=== PATIENT | male | born 1945 | race Caucasian/White ===

== ENCOUNTER → 2020-10-13 | Outpatient (CLI) | payer MEDICARE ==
--- NOTE | 2020-10-13 19:47 | EST ---
EXERCISE STRESS AGE: 74 SEX: Male HT: 6 feet 0 inches WT: 204 pounds PROTOCOL: Naeem STAGE: 2 DURATION OF EXERCISE: 6 minutes HEART RATE REST: 75 BLOOD PRESSURE REST: 135/87 MAXIMUM HEART RATE ACHIEVED: 149 MAXIMUM BLOOD PRESSURE: 207/60 85% MPHR: 123 100% MPHR: 145 METS: 7.3 INDICATIONS: Preoperative. CLINICAL INFORMATION: Baseline heart rate 75 beats per minute. Baseline blood pressure 135/87 mmHg. Baseline 12-lead ECG showed sinus rhythm with normal cardiac intervals and left axis deviation. The patient exercised on a Naeem protocol for 6 minutes, achieving a peak heart rate of 149 beats per minute. Hypertensive response to exercise. Peak blood pressure 207/60 mmHg. There was no ECG evidence for ischemia. No arrhythmias were noted. IMPRESSION: Hypertensive response to exercise. Average exercise capacity. No evidence for ischemia. MMODL / IJN: [id number] /
== END | disposition home or self-care (01) ==
LOC: RADNMMAIN 08:25
PROVIDERS: ATTEND Family Medicine
DX: I10 Essential (primary) hypertension (principal)
CPT/HCPCS: 93017

== ENCOUNTER → 2023-07-23 | Outpatient (CLI) | payer MEDICARE ==
--- NOTE | 2023-07-23 10:45 | MR ---
EXAMINATION TYPE: MR Prostate wo/w con DATE OF EXAM: 07/23/2023 10:23 AM COMPARISON: None. CLINICAL INDICATION:Male, 77 years old with history of R97.20 ELEVATED PSA; Prostate cancer. TECHNIQUE: Multi-planar, multi-sequence imaging of the pelvis is performed prior to and following the uncomplicated administration of bolus intravenous gadolinium. CONTRAST: 9 Gadavist Interpretive Criteria: PI-RADS v2.1 SERUM PSA: 3.6 on 12/25/2022. 2.5 on 06/18/2022. SURGICAL PATHOLOGY: No data available. FINDINGS: Prostatic dimensions: 3.3 x 5.1 x 2.5 cm. "Bullet" Volume:27.54 (PSA density=0.13 ng/mL/mL) CENTRAL GLAND (Central and Transition Zones/CZ+TZ): Multiple bilateral, heterogenous appearing hypertrophic stromal nodules, without suspicious lesion. M edian lobe hypertrophy with protrusion into the base of the bladder. 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 (PI-RADS 2) SEMINAL VESICLES (SV): Symmetric and unremarkable. PERIPROSTATIC TISSUES: Unremarkable. LYMPH NODES: No enlarged pelvic lymph node. REMAINING PELVIS: Bladder wall is within normal limits given distention. No abnormal free or organized intrapelvic fluid collection. Fat-containing right inguinal hernia. Left inguinal hernia with loops of colon near the ostium. Scatt ered colonic diverticula present. OSSEOUS STRUCTURES: No suspicious osseous abnormality. IMPRESSION: No specific features for high-risk prostate cancer. Maximum PI-RADS score: 2.
== END | disposition home or self-care (01) ==
LOC: RADMRIMAIN 09:05
PROVIDERS: ATTEND Urology
DX: C61 Malignant neoplasm of prostate (principal); R97.20 Elevated prostate specific antigen [PSA]
CPT/HCPCS: 72197; A9585

== ENCOUNTER 2024-05-25 13:11 | Day surgery (SDC) | payer MEDICARE ==
--- NOTE | 2024-05-25 12:35 | P.HPIHPCON ---
History of Present Illness H&P Date: 05/25/24 Chief Complaint: Prostate cancer This is a 78-year-old male with a history of [place] 7 prostate cancer treated by Dr. Decker in the past with cryoablation, patient developed prostate cancer recurrence in 2020, at that point he underwent a prostate biopsy that showed evidence of [place] 7(3+4) prostate cancer. He has been on active surveillance since that time, his PSA was stable but recently has been rising most recent PSA is 7.6. Discussed with him given this finding I do recommend proceeding with a repeat biopsy. Aware of the risk which includes but not limited to bleeding, infection. He understood all the risk and agreed to proceed. patient had a poor tolerance of the prostate biopsy in the office, and wanted to proceed with biopsy under sedation Consent for Procedure: I have explained the operation/procedure to the patient, including the risks, benefits, side effects, alternative therapies (including not receiving the proposed treatment or service), the likelihood of the patient achieving his/her goals, and potential recuperation problems for the procedure/sedation/analgesia, as well as any blood products, if indicated. I also explained to the patient the risks, benefits and side effects of the alternatives, as well as the risks related to not receiving the proposed procedure, care, treatment, or services. Past Medical History Past Medical History: Cancer, Hyperlipidemia, Hypertension Additional Past Medical History / Comment(s): prostate ca 2020, borderline diabetes History of Any Multi-Drug Resistant Organisms: None Reported Additional Past Surgical History / Comment(s): colonoscopy, prostate bx Past Anesthesia/Blood Transfusion Reactions: No Reported Reaction Smoking Status: Former smoker - Past Family History Brother(s) Family Medical History: Renal Disease Additional Family Medical History / Comment(s): kidney failure Medications and Allergies Home Medications Medication Instructions Recorded Confirmed Type Rosuvastatin Calcium 10 mg PO DAILY 05/21/24 05/21/24 History amLODIPine BESYLATE/BENAZEPRIL 1 cap PO DAILY 05/21/24 05/21/24 History [amLODIPine BESYLATE/BENAZEPRIL 5-10 mg] metFORMIN HCL 500 mg PO DAILY 05/21/24 05/21/24 History Allergies Allergy/AdvReac Type Severity Reaction Status Date / Time No Known Allergies Allergy Verified 05/21/24 09:59 Surgical - Exam - General no distress, no pain - Eyes normal ocular movement, no pale - ENT normal nares, normal mucosa - Respiratory normal expansion, normal respiratory effort - Abdomen Abdomen: soft, non tender Assessment and Plan Assessment: OR for transrectal biopsy of the prostate
[2024-05-25 14:57] VITALS: TEMP 97.9
[2024-05-25 15:02] LABS: Glucose,Whole Blood 124 mg/dL (70-110)
[2024-05-25] MEDS: LACTATED RINGERS 1,000 ML IV SCH (15:03)
[2024-05-25] MEDS: GENTAMICIN 40 MG/ML 2 ML VIAL IM PRN (15:24)
[2024-05-25] MEDS: IV FLUID CONTINUATION 1,000 ML IV ONE (15:27)
[2024-05-25] MEDS ORDERED: fentaNYL (PF) 50 MCG/ML 2 ML AMP ONE (15:51)
[2024-05-25] MEDS ORDERED: PROPOFOL 10 MG/ML 20 ML VIAL IV ONE (15:51)
--- NOTE | 2024-05-25 16:09 | P.OP ---
Date of Procedure: 05/25/24 Preoperative Diagnosis: Prostate cancer Postoperative Diagnosis: Same Procedure(s) Performed: Transrectal ultrasound biopsy of the prostate Anesthesia: MAC Surgeon: Emerson Edwards Estimated Blood Loss (ml): 1 Pathology: other (Prostate biopsies) Condition: stable Disposition: PACU Indications for Procedure: This is a 78-year-old male with a history of [place] 7 prostate cancer treated by Dr[address] Decker in the past with cryoablation, patient developed prostate cancer recurrence in 2020, at that point he underwent a prostate biopsy that showed evidence of [place] 7(3+4) prostate cancer. He has been on active surveillance since that time, his PSA was stable but recently has been rising most recent PSA is 7.6. Discussed with him given this finding I do recommend proceeding with a repeat biopsy. Aware of the risk which includes but not limited to bleeding, infection. He understood all the risk and agreed to proceed. patient had a poor tolerance of the prostate biopsy in the office, and wanted to proceed with biopsy under sedation Description of Procedure: The patient was taken to the operating room and placed in the left lateral decubitus position. The [employer] transrectal ultrasound probe was placed intrarectally. . The prostate was imaged in both the axial and sagittal planes. Using the Biopsy gun, 12 biopsies of the peripheral zone were obtained utilizing a standard template. Once the procedure was completed, the ultrasound probe was removed. The patient tolerated the procedure well was taken to the recovery room stable condition
[2024-05-25 16:29] VITALS: BP 104/64; PULSE 72; RESP 16
== END 2024-05-25 16:48 | disposition home or self-care (01) ==
LOC: OR 13:11
PROVIDERS: ATTEND Urology
DX: C61 Malignant neoplasm of prostate (principal); N40.0 Benign prostatic hyperplasia without lower urinary tract symptoms; N41.1 Chronic prostatitis; N41.0 Acute prostatitis; L90.5 Scar conditions and fibrosis of skin; E78.5 Hyperlipidemia, unspecified; I10 Essential (primary) hypertension; Z79.84 Long term (current) use of oral hypoglycemic drugs; Z87.891 Personal history of nicotine dependence; Z79.899 Other long term (current) drug therapy
CPT/HCPCS: 55700; 88305; J1580; J3010; J2704

== ENCOUNTER → 2024-06-22 | Outpatient (CLI) | payer MEDICARE ==
[2024-06-22 16:24] LABS: Basophils # (A) 0.04 X 10*3/uL (0.00-0.10); Basophils % (A) 0.5 %; Eosinophils # (A) 0.27 X 10*3/uL (0.04-0.35); Eosinophils % (A) 3.4 %; HCT 43.9 % (39.6-50.0); HGB 14.5 g/dL (13.0-17.0); Lymphocytes # (A) 1.31 X 10*3/uL (0.90-5.00); Lymphocytes % (A) 16.5 %; MCH 31.3 pg (27.0-32.0); MCV 94.8 FL (80.0-97.0); Mean Platelet Volume 10.5 FL (9.5-12.2); Monocytes # (A) 0.76 X 10*3/uL (0.20-1.00); Monocytes % (A) 9.5 %; NRBC Per 100 WBC 0 X 10*3/uL (0.00-0.01); Neutrophils # (A) 5.55 X 10*3/uL (1.80-7.70); Neutrophils % (A) 69.7 %; Platelet Count 230 X 10*3/uL (140-440); RBC 4.63 X 10*6/uL (4.40-5.60); RDW 12.4 % (11.5-14.5); WBC 7.96 X 10*3/uL (4.50-10.00)
[2024-06-22 16:43] LABS: BUN/Creat Ratio 14.08 Ratio (12.00-20.00); Blood Urea Nitrogen 18.3 mg/dL (9.0-27.0); Calcium 9.8 mg/dL (8.7-10.3); Carbon Dioxide 25.3 mmol/L (21.6-31.8); Chloride 105 mmol/L (96-109); Glucose 143 mg/dL (70-110); Potassium 4.2 mmol/L (3.5-5.5); Sodium 143 mmol/L (135-145)
== END | disposition home or self-care (01) ==
LOC: LABPAT 08:43
PROVIDERS: ATTEND Urology
DX: Z01.812 Encounter for preprocedural laboratory examination (principal); C61 Malignant neoplasm of prostate
CPT/HCPCS: 36415; 80048; 85025

== ENCOUNTER 2024-06-24 09:18 | Day surgery (SDC) | payer MEDICARE ==
--- NOTE | 2024-06-22 15:15 | P.HPIHPCON ---
History of Present Illness H&P Date: 06/22/24 Chief Complaint: Prostate cancer This is a 78-year-old male with history of [place] 7(4+3) prostate cancer, previously treated with cryoablation but then developed local recurrence. He was evaluated by radiation oncology and recommendation was to undergo radiation therapy with a short course of androgen the revision therapy. Option of SpaceOAR was discussed with him. Risk benefit and rationale of doing this was discussed in details. He is aware that the purpose of a SpaceOAR is to reduce rectal toxicity. He understood all the risk and agreed to proceed Consent for Procedure: I have explained the operation/procedure to the patient, including the risks, benefits, side effects, alternative therapies (including not receiving the proposed treatment or service), the likelihood of the patient achieving his/her goals, and potential recuperation problems for the procedure/sedation/analgesia, as well as any blood products, if indicated. I also explained to the patient the risks, benefits and side effects of the alternatives, as well as the risks related to not receiving the proposed procedure, care, treatment, or services. Past Medical History Past Medical History: Cancer, Hyperlipidemia, Hypertension Additional Past Medical History / Comment(s): prostate ca 2020, borderline diabetes History of Any Multi-Drug Resistant Organisms: None Reported Additional Past Surgical History / Comment(s): colonoscopy, prostate bx Past Anesthesia/Blood Transfusion Reactions: No Reported Reaction Smoking Status: Former smoker - Past Family History Brother(s) Family Medical History: Renal Disease Additional Family Medical History / Comment(s): kidney failure Medications and Allergies Home Medications Medication Instructions Recorded Confirmed Type Rosuvastatin Calcium 10 mg PO DAILY 05/21/24 05/21/24 History amLODIPine BESYLATE/BENAZEPRIL 1 cap PO DAILY 05/21/24 05/21/24 History [amLODIPine BESYLATE/BENAZEPRIL 5-10 mg] metFORMIN HCL 500 mg PO DAILY 05/21/24 05/21/24 History Ciprofloxacin HCl [Cipro] 500 mg PO BID 05/25/24 05/25/24 History Allergies Allergy/AdvReac Type Severity Reaction Status Date / Time No Known Allergies Allergy Verified 05/25/24 15:00 Surgical - Exam - General no distress, no pain - Eyes normal ocular movement, no pale - ENT normal nares, normal mucosa - Respiratory normal expansion, normal respiratory effort Assessment and Plan Assessment: OR for MRI fusion biopsy of the prostate
[2024-06-23 11:22] VITALS: BMI 26.3
[2024-06-24] MEDS: IV FLUID CONTINUATION 1,000 ML IV ONE (09:28)
[2024-06-24 09:40] VITALS: TEMP 97.8
[2024-06-24] MEDS: LACTATED RINGERS 1,000 ML BAG IV STA (09:42)
[2024-06-24 10:02] LABS: Glucose,Whole Blood 144 mg/dL (70-110)
[2024-06-24] MEDS ORDERED: MIDAZOLAM 2 MG/2 ML VIAL ONE (11:11)
[2024-06-24] MEDS ORDERED: PROPOFOL 10 MG/ML 20 ML VIAL IV ONE (11:11)
[2024-06-24] MEDS ORDERED: fentaNYL (PF) 50 MCG/ML 2 ML AMP ONE (11:11)
[2024-06-24] MEDS: LIDOCAINE 2% INJ 20 MG/ML SQ ONE ×3 (11:15→11:28)
--- NOTE | 2024-06-24 11:42 | P.OP ---
Date of Procedure: 06/24/24 Preoperative Diagnosis: Adenocarcinoma of the prostate Postoperative Diagnosis: Same Procedure(s) Performed: SpaceOAR implant Anesthesia: MAC Surgeon: Korey Quinones Estimated Blood Loss (ml): 5 IV fluids (ml): 400 Pathology: none sent Condition: stable Disposition: PACU Indications for Procedure: This is a 78-year-old male with history of [place] 7(4+3) prostate cancer, previously treated with cryoablation but then developed local recurrence. He was evaluated by radiation oncology and recommendation was to undergo radiation therapy with a short course of androgen deprivation therapy. He now comes for SpaceOAR implant to reduce rectal toxicity. Operative Findings: 9 to 10 mm separation created between prostate and rectum. Description of Procedure: The patient was taken to the operating room and placed in the dorsolithotomy position, with his legs supported in Reinaldo stirrups. The external genitalia was prepped and draped sterilely. The [employer] transrectal ultrasound probe was placed intrarectally. The prostate was imaged. The probe was then placed within the stabilizing stand. A spinal needle was advanced under ultrasonic guidance to the level of the urogenital diaphragm, and lidocaine was used to infiltrate the tissues as the needle was withdrawn. Next, the SpaceOAR needle was passed through the midline of the perineum, 1-2 cm anterior to the anal opening. The needle was slowly advanced under ultrasonic guidance until the needle tip was located within the fat plane between the prostate and rectum, at the level of the mid prostate gland. The needle was confirmed to be midline on the axial imaging. A small amount of normal saline was injected for hydrodissection. Next, the SpaceOAR components were mixed and loaded into the Y connector per protocol. The Y connector was then connected to the needle, and the components were injected slowly over a course of approximately 12 seconds. A total of 10 ml was injected. Significant distance was created between the pr ostate and rectum, as desired. It should be noted that at no point was there any concern of rectal perforation. The needle was withdrawn, as well as the transrectal ultrasound probe, and the procedure was terminated. The patient tolerated the procedure well and was taken to the recovery room in stable condition.
[2024-06-24 12:12] VITALS: BP 132/77; PULSE 62; RESP 16
== END 2024-06-24 12:26 | disposition home or self-care (01) ==
LOC: OR 09:18
PROVIDERS: ATTEND Urology
DX: C61 Malignant neoplasm of prostate (principal); I10 Essential (primary) hypertension; E78.5 Hyperlipidemia, unspecified; R73.03 Prediabetes; Z79.84 Long term (current) use of oral hypoglycemic drugs; Z79.899 Other long term (current) drug therapy; Z87.891 Personal history of nicotine dependence
CPT/HCPCS: 55874; C1889; J2250; J0690; J3010; J2704; J2003

== ENCOUNTER → 2024-09-16 | Outpatient (CLI) | payer MEDICARE ==
[2024-09-16 15:16] LABS: Prostate Specific Antigen 0.2 ng/mL (0.000-6.500)
[2024-09-16 15:54] LABS: Testosterone 23.8 ng/dL (86.98-780.10)
== END | disposition home or self-care (01) ==
LOC: LABWHC1 09:11
PROVIDERS: ATTEND Radiology Radiation Oncology
DX: C61 Malignant neoplasm of prostate (principal)
CPT/HCPCS: 36415; 84153; 84403

== ENCOUNTER → 2025-01-14 | Outpatient (CLI) | payer MEDICARE | END | disposition home or self-care (01) | LOC: LABWHC1 08:02 | PROVIDERS: ATTEND Radiology Radiation Oncology | DX: C61 Malignant neoplasm of prostate (principal) | CPT/HCPCS: 36415; 84153 ==